=== PATIENT | female | born 2000 | race Two or more races ===

== ENCOUNTER 2021-11-18 20:11 | Emergency (ER) | payer OTHER ==
--- NOTE | 2021-11-19 00:30 | US ---
EXAMINATION TYPE: Transabdominal DATE OF EXAM: 11/19/2021 12:09 AM COMPARISON: NONE CLINICAL HISTORY: pelvic pain. Pain. . EXAM PERFORMED: Transabdominal (TA) EXAM MEASUREMENTS: GESTATIONAL AGE / DATING Physician Established: Not yet established. Dates by LMP: (12 weeks/4 days) EDC: 05/29/2022 Dates by First Scan: This is first scan. Dates by Current Scan for: (12 weeks/2 days) EDC: 05/31/2022 MATERNAL ANATOMY Uterus: 11.7 x 9.8 x 6.4 cm Anteverted. Right Ovary: 2.9 x 1.5 x 2.2 cm. Left Ovary: Not seen Post CDS / Adnexa: Appear to be wnl Presence of free fluid: No Presence of corpus luteal cyst: No Presence of subchorionic bleed: No GESTATION / SURVEY CRL: 57.3 mm. (12 weeks/2 days) Yolk Sac (normal less than 6mm): Not seen. Heart Rate: 167 bpm Rhythm: Normal IUP: Viable IUP Nuchal Translucency 10-14wks (normal less than 3mm): Not well seen, constant movement noted. Date of LMP: 08/22/2021 Beta HcG (if available): Not available. IMPRESSION: The ultrasound gestational age is 12 weeks and 2 days. The TRACEY is 05/31/2022. No complicating process seen.
--- NOTE | 2021-11-19 00:42 | ED ---
General Adult HPI - General Chief complaint: Upper Respiratory Infection Stated complaint: covid+,13 wks preg Time Seen by Provider: 11/18/21 22:12 Source: patient Mode of arrival: ambulatory Limitations: no limitations - History of Present Illness Initial comments: 2 this patient is a 21-year-old woman presenting with lower abdominal cramping. The patient states that she was concerned because she had developed congestion, rhinorrhea, low-grade fevers. She was diagnosed with Covid test. -: days(s) Location: abdomen Radiation: non-radiation Severity scale (1-10): 0 Quality: other (Cramping) Consistency: intermittent Improves with: none Worsens with: none Associated Symptoms: cough, other Treatments Prior to Arrival: none - Related Data Home Medications Medication Instructions Recorded Confirmed Kis-Ijcn-Przoe Acid 1 cap PO DAILY 11/18/21 11/18/21 [-U Capsule (formulary)] Allergies Allergy/AdvReac Type Severity Reaction Status Date / Time No Known Allergies Allergy Verified 11/18/21 22:48 Review of Systems ROS Statement: Those systems with pertinent positive or pertinent negative responses have been documented in the HPI. ROS Other: All systems not noted in ROS Statement are negative. Constitutional: Reports: fever ENT: Reports: congestion Respiratory: Reports: cough Cardiovascular: Denies: chest pain, palpitations, edema Gastrointestinal: Reports: as per HPI, abdominal pain. Denies: nausea, v omiting, diarrhea Genitourinary: Denies: dysuria, hematuria, discharge, abnormal menses Musculoskeletal: Denies: back pain Skin: Denies: rash Neurological: Denies: headache, weakness Past Medical History Past Medical History: No Reported History History of Any Multi-Drug Resistant Organisms: None Reported Past Surgical History: No Surgical Hx Reported Past Psychological History: Depression, Panic Disorder Smoking Status: Never smoker Past Alcohol Use History: Occasional Past Drug Use History: None Reported General Exam Limitations: no limitations General appearance: alert, in no apparent distress Head exam: Present: atraumatic, normocephalic Eye exam: Present: normal appearance. Absent: scleral icterus, conjunctival injection Neck exam: Present: normal inspection Respiratory exam: Present: normal lung sounds bilaterally. Absent: respiratory distress, wheezes, rales, rhonchi, stridor Cardiovascular Exam: Present: regular rate, normal rhythm, normal heart sounds. Absent: systolic murmur, diastolic murmur, rubs, gallop GI/Abdominal exam: Present: soft. Absent: distended, tenderness, guarding, rebound, rigid, mass Extremities exam: Present: normal inspection, normal capillary refill. Absent: pedal edema, calf tenderness Back exam: Present: normal inspection. Absent: CVA tenderness (R), CVA tenderness (L) Neurological exam: Present: alert Skin exam: Present: warm, dry, intact, normal color. Absent: rash Course Vital Signs 11/18/21 21:58 Temperature 98.5 F Pulse Rate 85 Respiratory 20 Rate Blood Pressure 102/64 O2 Sat by Pulse 100 Oximetry Medical Decision Making - Medical Decision Making Discussed risks, benefits, indications of the antibody therapy for elevated infection. At this point the patient is declining to have that. She states she is going to follow with her belt picker for further discussion of the medication. Disposition Clinical Impression: COVID-19, Abdominal pain affecting Disposition: HOME SELF-CARE Condition: Good Instructions (If sedation given, give patient instructions): Coronavirus Disease 2019 (COVID-19), Abdominal Pain in (ED) Is patient prescribed a controlled substance at d/c from ED?: No Referrals: None,Stated [Primary Care Provider] - 1-2 days
[2021-11-19 01:06] VITALS: BP 120/79; PULSE 67; RESP 15; TEMP 97.6
== END 2021-11-19 01:04 | disposition home or self-care (01) ==
LOC: EC 20:11
DX: O26.891 Other specified pregnancy related conditions, first trimester (principal); O98.511 Other viral diseases complicating pregnancy, first trimester; R10.9 Unspecified abdominal pain; U07.1 COVID-19; F41.0 Panic disorder [episodic paroxysmal anxiety]; F32.A Depression, unspecified; Z72.89 Other problems related to lifestyle; Z3A.13 13 weeks gestation of pregnancy
CPT/HCPCS: 76801; 99284